=== PATIENT | female | born 1975 | race Caucasian/White ===

== ENCOUNTER 2018-07-10 21:55 | Emergency (ER) | payer MEDICAID ==
[~2018-07-10] VITALS: Ht 160 cm; Wt 74.7 kg
[2018-07-10 21:58] VITALS: BP 88/66
--- NOTE | 2018-07-10 22:14 | NUR ---
Patient/Caregiver given discharge instructions and they have confirmed that they understand the instructions. Patient ambulatory with steady gait. PER PA
== END 2018-07-10 22:18 | disposition home or self-care (01) ==
LOC: ED 22:00
DX: F10.129 Alcohol abuse with intoxication, unspecified (principal); F15.129 Other stimulant abuse with intoxication, unspecified
CPT/HCPCS: 99281

== ENCOUNTER 2019-03-25 17:58 | Emergency (ER) | payer MEDICAID ==
[~2019-03-25] VITALS: Ht 160 cm; Wt 64.0 kg
[2019-03-25 18:02] VITALS: BP 133/81
--- NOTE | 2019-03-25 18:12 | NUR ---
PT TO ROOM FROM TRIAGE, HYSTERICALLY STATING "THEY'RE COMING OUT, THE SNAKES KEEP COMING, THEY SMELL LIKE POISON" SHE RUBS HER SCALP; UPON CHANGING INTO GOWN & GATHERING BELONGINGS, THE SW (MAYELIN) FOUND A KITCHEN KNIFE (CLEVER STYLE) WITH BELONGINGS, KNIFE LABELED & GIVEN TO SECURITY; 2 BAGS OF PERSONAL BELONGINGS PLACED IN LOCKER (TENNIS SHOES, CLOTHES, JACKET, LG PHONE & PURSE), SECURITY VIDAL DOWN, AWAITING SITTER- POWER SUPPLY ENGINEER AWARE.
[2019-03-25] MEDS ORDERED: DEPAKOTE (18:25)
[2019-03-25] MEDS ORDERED: ZOLOFT (18:25)
[2019-03-25] MEDS ORDERED: ZIPRASIDONE 20 MG INJ IM ONE ×2 (18:30→18:32)
[2019-03-25] MEDS ORDERED: LORazepam 1MG TABLET PO ONE (18:30)
[2019-03-25] MEDS ORDERED: LORazepam 1MG TABLET ONE (18:32)
--- NOTE | 2019-03-25 18:40 | NUR ---
PT STATES SHE IS UNABLE TO VOID AT THIS TIME DESPITE FREQUENT ENCOURAGEMENT.
--- NOTE | 2019-03-25 18:53 | NUR ---
SMOOTH ARRIVED & IN VIEW OF PT.
[2019-03-25 19:07] LABS: BASOPHILS # (AUTO) 0.05 x10^3/uL (0-0.1); BASOPHILS % (AUTO) 1 % (0-1); EOSINOPHILS # (AUTO) 0.03 x10^3/uL (0-0.4); EOSINOPHILS % (AUTO) 0 % (1-7); LYMPHOCYTES # (AUTO) 2.12 x10^3/uL (1-3.4); LYMPHOCYTES % (AUTO) 21 % (22-44); MD NO; MEAN CORPUSCULAR HEMOGLOBIN 29.9 pg (27.0-34.8); MEAN CORPUSCULAR HGB CONC 33.3 g/dL (32.4-35.8); MEAN CORPUSCULAR VOLUME 89.8 fL (80-100); MEAN PLATELET VOLUME 8.1 fL (7.4-10.4); MONOCYTES # (AUTO) 0.94 x10^3/uL (0.2-0.8); MONOCYTES % (AUTO) 9 % (2-9); NEUTROPHILS # (AUTO) 7.21 x10^3/uL (1.8-6.8); NEUTROPHILS % (AUTO) 70 % (42-75); PLATELET COUNT 389 x10^3/uL (130-400); RED BLOOD COUNT 4.65 x10^6/uL (3.82-5.3); RED CELL DISTRIBUTION WIDTH 15.6 % (9.6-15.2)
[2019-03-25 19:11] LABS: SALICYLATE LEVEL 6.6 mg/dL (2.8-20.0)
--- NOTE | 2019-03-25 19:12 | NUR ---
report from darlene ann. pt calm on gurney. sitter at bedside. pt to bathroom to provide urine sample.
--- NOTE | 2019-03-25 19:55 | NUR ---
pt unable to give urine sample. er md seth informed. Dr. Seth states no need for urine sample. pt to be discharged once more awake.
[2019-03-25 21:26] LABS: ALANINE AMINOTRANSFERASE 35 U/L (12-78); ALBUMIN 3.7 g/dL (3.4-5.0); ANION GAP 15 mmol/L (5-15); CALCIUM 9.5 mg/dL (8.5-10.1); CHLORIDE 105 mmol/L (98-107); CREATININE 0.93 mg/dL (0.55-1.02)
[2019-03-25 21:28] LABS: ALKALINE PHOSPHATASE 81 U/L (45-117); BILIRUBIN,TOTAL 0.4 mg/dL (0.2-1.0); TOTAL PROTEIN 7.7 g/dL (6.4-8.2)
== END 2019-03-25 22:25 | disposition home or self-care (01) ==
LOC: ED 18:23
DX: F15.10 Other stimulant abuse, uncomplicated (principal); F22 Delusional disorders; F17.200 Nicotine dependence, unspecified, uncomplicated; R44.3 Hallucinations, unspecified; F10.129 Alcohol abuse with intoxication, unspecified
CPT/HCPCS: 36415; 80053; 80307; 84703; 85025; 96372; 99283; J3486

== ENCOUNTER 2019-03-27 15:03 | Inpatient (IN) | payer MEDICAID ==
[~2019-03-27] VITALS: Ht 160 cm; Wt 66.8 kg
[~2019-03-27 15:03] MED LIST: DEPAKOTE; ZOLOFT
[2019-03-27] MEDS ORDERED: POLYETHYLENE GLYCOL 17 GM PACKET PO PRN (15:30)
[2019-03-27] MEDS ORDERED: DOCUSATE 100 MG CAPSULE PO PRN (15:30)
[2019-03-27] MEDS ORDERED: BISACODYL 10 MG SUPP PR PRN (15:30)
[2019-03-27] MEDS ORDERED: ONDANSETRON ODT 4 MG PO PRN (15:30)
[2019-03-27] MEDS ORDERED: CLON0.5T11 PO (15:40)
[2019-03-27] MEDS ORDERED: QUET300T PO (15:40)
[2019-03-27] MEDS ORDERED: DIVA250T14 PO (15:40)
[2019-03-27] MEDS ORDERED: SERT-238 PO (15:40)
[2019-03-27] MEDS ORDERED: HYDR25CA94 PO (15:40)
[2019-03-27] MEDS: PLEASE ENTER HEIGHT AND WEIGHT MC SCH (17:30)
[2019-03-27 17:42] VITALS: BP 100/68
[2019-03-27 18:11] LABS: MICROSCOPIC INDICATED
[2019-03-27 18:30] LABS: CULTURE INDICATED? YES
[2019-03-27 19:30] VITALS: BP 99/63
[2019-03-27] MEDS: DIVALPROEX 500 MG TABLET.DR PO SCH (20:11)
[2019-03-27] MEDS: ACAMPROSATE 333 MG TABLET.DR PO SCH (20:11)
[2019-03-28] MEDS: PLEASE ENTER HEIGHT AND WEIGHT MC SCH (02:35)
[2019-03-28 07:09] VITALS: BP 94/59
[2019-03-28 08:23] LABS: ANION GAP 7 mmol/L (5-15); CALCIUM 9.2 mg/dL (8.5-10.1); CHLORIDE 104 mmol/L (98-107); CHOLESTEROL, TOTAL 202 mg/dL (140-239); CREATININE 0.71 mg/dL (0.55-1.02)
[2019-03-28 08:50] LABS: CHOL/HDL RATIO 2.7; FREE T4 (FREE THYROXINE) 0.99 ng/dL (0.76-1.46); HDL CHOL % 37 % (28-40); HDL CHOLESTEROL (DIRECT) 74 mg/dL (40-60); LDL CHOLESTEROL,CALCULATED 101 mg/dL (54-169); LDL/HDL RATIO 1.4 (0.5-3.0); TRIGLYCERIDES 134 mg/dL (50-200); VLDL CHOLESTEROL 27 mg/dL (0-25)
[2019-03-28] MEDS ORDERED: QUETIAPINE 100MG TABLET PO SCH (09:00)
[2019-03-28] MEDS: DIVALPROEX 500 MG TABLET.DR PO SCH ×2 (09:05→20:19)
[2019-03-28] MEDS: ACAMPROSATE 333 MG TABLET.DR PO SCH ×3 (09:05→20:19)
[2019-03-28] MEDS: NICOTINE 7 MG/24 HR PATCH.TD24 TD SCH (09:05)
[2019-03-28] MEDS: SERTRALINE 100MG TABLET PO SCH (09:06)
[2019-03-28 19:52] VITALS: BP 94/61
[2019-03-28] MEDS: QUETIAPINE 200 MG TABLET PO SCH (20:19)
[2019-03-29 07:05] VITALS: BP 98/59
[2019-03-29] MEDS: SERTRALINE 100MG TABLET PO SCH (08:18)
[2019-03-29] MEDS: DIVALPROEX 500 MG TABLET.DR PO SCH ×2 (08:18→20:28)
[2019-03-29] MEDS: ACAMPROSATE 333 MG TABLET.DR PO SCH ×3 (08:19→20:27)
[2019-03-29] MEDS: NICOTINE 7 MG/24 HR PATCH.TD24 TD SCH (08:19)
[2019-03-29] MEDS: NAPROXEN 500 MG TABLET PO PRN (08:19)
[2019-03-29] MEDS: RISPERIDONE 0.5 MG TABLET PO SCH ×2 (09:00→20:27)
[2019-03-29 19:34] VITALS: BP 101/66
[2019-03-29] MEDS: QUETIAPINE 200 MG TABLET PO SCH (20:27)
[2019-03-30 07:35] VITALS: BP 102/66
[2019-03-30] MEDS: ACAMPROSATE 333 MG TABLET.DR PO SCH ×3 (08:16→20:28)
[2019-03-30] MEDS: RISPERIDONE 0.5 MG TABLET PO SCH (08:17)
[2019-03-30] MEDS: DIVALPROEX 500 MG TABLET.DR PO SCH ×2 (08:17→20:32)
[2019-03-30] MEDS: SERTRALINE 100MG TABLET PO SCH (08:17)
[2019-03-30] MEDS: NICOTINE 7 MG/24 HR PATCH.TD24 TD SCH (08:18)
[2019-03-30] MEDS: NAPROXEN 500 MG TABLET PO PRN ×2 (08:22→20:29)
[2019-03-30] MEDS ORDERED: LORazepam 1MG TABLET PO ONE (09:30)
[2019-03-30] MEDS: ACETAMINOPHEN 325 MG TABLET PO PRN (17:58)
[2019-03-30 18:07] VITALS: BP 94/61
[2019-03-30 19:39] VITALS: BP 97/60
[2019-03-30] MEDS: QUETIAPINE 200 MG TABLET PO SCH (20:29)
[2019-03-30] MEDS: RISPERIDONE 1 MG TABLET PO SCH (20:29)
[2019-03-31 07:36] VITALS: BP 105/66
[2019-03-31] MEDS: RISPERIDONE 1 MG TABLET PO SCH ×2 (08:30→20:41)
[2019-03-31] MEDS: DIVALPROEX 500 MG TABLET.DR PO SCH ×2 (08:30→20:40)
[2019-03-31] MEDS: SERTRALINE 100MG TABLET PO SCH (08:31)
[2019-03-31] MEDS: ACAMPROSATE 333 MG TABLET.DR PO SCH ×3 (08:31→20:39)
[2019-03-31] MEDS: NICOTINE 7 MG/24 HR PATCH.TD24 TD SCH (08:32)
[2019-03-31] MEDS: NAPROXEN 500 MG TABLET PO PRN (08:45)
[2019-03-31] MEDS: hydrOXyzine 50MG TABLET PO PRN (14:09)
[2019-03-31] MEDS: ACETAMINOPHEN 325 MG TABLET PO PRN ×2 (16:24→20:40)
[2019-03-31 20:38] VITALS: BP 99/66
[2019-03-31] MEDS: QUETIAPINE 200 MG TABLET PO SCH (20:41)
[2019-04-01] MEDS: NAPROXEN 500 MG TABLET PO PRN ×2 (04:01→20:26)
[2019-04-01 07:24] VITALS: BP 102/64
[2019-04-01] MEDS: DIVALPROEX 500 MG TABLET.DR PO SCH ×2 (09:00→20:25)
[2019-04-01] MEDS: ACAMPROSATE 333 MG TABLET.DR PO SCH ×3 (09:24→20:26)
[2019-04-01] MEDS: SERTRALINE 100MG TABLET PO SCH (09:26)
[2019-04-01] MEDS: NICOTINE 7 MG/24 HR PATCH.TD24 TD SCH (09:26)
[2019-04-01] MEDS: RISPERIDONE 1 MG TABLET PO SCH ×2 (09:26→20:26)
[2019-04-01] MEDS: ACETAMINOPHEN 325 MG TABLET PO PRN ×2 (09:30→17:36)
[2019-04-01] MEDS: hydrOXyzine 50MG TABLET PO PRN (13:16)
[2019-04-01 19:45] VITALS: BP 101/68
[2019-04-01] MEDS: QUETIAPINE 200 MG TABLET PO SCH (20:26)
[2019-04-02 07:18] VITALS: BP 105/76
[2019-04-02] MEDS: NAPROXEN 500 MG TABLET PO PRN (07:48)
[2019-04-02] MEDS: ACAMPROSATE 333 MG TABLET.DR PO SCH ×3 (07:48→19:59)
[2019-04-02] MEDS: SERTRALINE 100MG TABLET PO SCH (07:50)
[2019-04-02] MEDS: NICOTINE 7 MG/24 HR PATCH.TD24 TD SCH (07:50)
[2019-04-02] MEDS: RISPERIDONE 1 MG TABLET PO SCH ×2 (07:50→19:59)
[2019-04-02] MEDS: DIVALPROEX 500 MG TABLET.DR PO SCH ×2 (07:50→20:00)
[2019-04-02] MEDS: hydrOXyzine 50MG TABLET PO PRN (14:27)
[2019-04-02] MEDS: ACETAMINOPHEN 325 MG TABLET PO PRN (14:27)
[2019-04-02 19:34] VITALS: BP 101/67
[2019-04-02] MEDS: QUETIAPINE 200 MG TABLET PO SCH (19:59)
[2019-04-03 07:21] VITALS: BP 106/71
[2019-04-03] MEDS: NICOTINE 7 MG/24 HR PATCH.TD24 TD SCH (08:40)
[2019-04-03] MEDS: NAPROXEN 500 MG TABLET PO PRN (08:40)
[2019-04-03] MEDS: DIVALPROEX 500 MG TABLET.DR PO SCH ×2 (08:41→19:53)
[2019-04-03] MEDS: SERTRALINE 100MG TABLET PO SCH (08:41)
[2019-04-03] MEDS: RISPERIDONE 1 MG TABLET PO SCH ×2 (08:41→19:52)
[2019-04-03] MEDS: ACAMPROSATE 333 MG TABLET.DR PO SCH ×3 (08:41→19:52)
[2019-04-03] MEDS: hydrOXyzine 50MG TABLET PO PRN ×2 (08:41→16:20)
[2019-04-03] MEDS: BUTALB/APAP/CAFFEINE 50MG/325MG/40MG PO PRN ×2 (13:18→20:00)
[2019-04-03 19:28] VITALS: BP 105/70
[2019-04-03] MEDS: QUETIAPINE 200 MG TABLET PO SCH (19:51)
[2019-04-04 07:14] VITALS: BP 108/69
[2019-04-04] MEDS: BUTALB/APAP/CAFFEINE 50MG/325MG/40MG PO PRN (07:32)
[2019-04-04] MEDS: SERTRALINE 100MG TABLET PO SCH (08:26)
[2019-04-04] MEDS: NICOTINE 7 MG/24 HR PATCH.TD24 TD SCH (08:26)
[2019-04-04] MEDS: RISPERIDONE 1 MG TABLET PO SCH (08:27)
[2019-04-04] MEDS: DIVALPROEX 500 MG TABLET.DR PO SCH (08:27)
[2019-04-04] MEDS: ACAMPROSATE 333 MG TABLET.DR PO SCH (08:28)
[2019-04-04] MEDS ORDERED: QUET100T PO (12:18)
[2019-04-04] MEDS ORDERED: RISP1TAB45 PO (12:18)
[2019-04-04] MEDS ORDERED: DIVA-61 PO (12:18)
[2019-04-04] MEDS ORDERED: SERT100T32 PO (12:18)
[2019-04-04] MEDS ORDERED: NICO-485 TD (12:18)
[2019-04-04] MEDS ORDERED: QUET200T PO (12:18)
[2019-04-04] MEDS ORDERED: ACAM333T7 PO (12:18)
[2019-04-04] MEDS ORDERED: HYDR50TA13 PO (12:18)
== END 2019-04-04 09:55 | disposition home or self-care (01) | DRG 750 ==
LOC: 3E 17:20
PROVIDERS: ADMIT Psychiatry & Neurology Psychosomatic Medicine; ATTEND Psychiatry & Neurology Psychosomatic Medicine
DX: F25.0 Schizoaffective disorder, bipolar type (principal); F15.20 Other stimulant dependence, uncomplicated; F12.10 Cannabis abuse, uncomplicated; F17.210 Nicotine dependence, cigarettes, uncomplicated; F23 Brief psychotic disorder; F41.9 Anxiety disorder, unspecified; Z80.1 Family history of malignant neoplasm of trachea, bronchus and lung; Z82.49 Family history of ischemic heart disease and other diseases of the circulatory system; Z82.5 Family history of asthma and other chronic lower respiratory diseases; Z83.3 Family history of diabetes mellitus
CPT/HCPCS: 36415; 71045; 80048; 80061; 81001; 82607; 84439; 84443; 87086

== ENCOUNTER 2019-05-07 18:42 | Emergency (ER) | payer MEDICAID ==
[~2019-05-07] VITALS: Ht 160 cm; Wt 74.5 kg
[~2019-05-07 18:42] MED LIST changes: +ACAM333T7 PO; +CLON0.5T11 PO; +DIVA-61 PO; +DIVA250T14 PO; +HYDR25CA94 PO; +HYDR50TA13 PO; +NICO-485 TD; +QUET100T PO; +QUET200T PO; +QUET300T PO; +RISP1TAB45 PO; +SERT-238 PO; +SERT100T32 PO
--- NOTE | 2019-05-07 19:58 | NUR ---
Patient called in lobby; no patient answered. Patient again called in lobby, RN walked around to pediatric section, still no answer.
[2019-05-07 20:09] VITALS: BP 105/61
--- NOTE | 2019-05-07 20:32 | NUR ---
PT BELONGINGS BAGGED & LABELED; WILL BE PLACED IN ED LOCKER.
--- NOTE | 2019-05-07 20:37 | NUR ---
THREE BELONGINGS BAGS WERE LABELED AND PLACED IN THE STORAGE LOCKER.
[2019-05-07 20:52] LABS: BASOPHILS # (AUTO) 0.08 x10^3/uL (0-0.1); BASOPHILS % (AUTO) 1 % (0-1); EOSINOPHILS # (AUTO) 0.12 x10^3/uL (0-0.4); EOSINOPHILS % (AUTO) 2 % (1-7); LYMPHOCYTES # (AUTO) 2.77 x10^3/uL (1-3.4); LYMPHOCYTES % (AUTO) 38 % (22-44); MD NO; MEAN CORPUSCULAR HEMOGLOBIN 29.3 pg (27.0-34.8); MEAN CORPUSCULAR HGB CONC 33.4 g/dL (32.4-35.8); MEAN CORPUSCULAR VOLUME 87.9 fL (80-100); MEAN PLATELET VOLUME 7.3 fL (7.4-10.4); MONOCYTES # (AUTO) 0.64 x10^3/uL (0.2-0.8); MONOCYTES % (AUTO) 9 % (2-9); NEUTROPHILS % (AUTO) 50 % (42-75); PLATELET COUNT 290 x10^3/uL (130-400); RED BLOOD COUNT 4.17 x10^6/uL (3.82-5.3)
[2019-05-07 21:04] LABS: ALBUMIN 3.5 g/dL (3.4-5.0); ANION GAP 5 mmol/L (5-15); CALCIUM 8.6 mg/dL (8.5-10.1); CHLORIDE 111 mmol/L (98-107); CREATININE 0.86 mg/dL (0.55-1.02); SALICYLATE LEVEL 5.2 mg/dL (2.8-20.0)
[2019-05-07 21:08] LABS: AMPHETAMINE SCREEN, URINE Negative (Negative); BARBITURATE SCREEN, URINE Negative (Negative); BENZODIAZEPINE SCREEN, URINE Negative (Negative); CANNABINOID SCREEN, URINE Positive (Negative); COCAINE SCREEN, URINE Negative (Negative); METHADONE SCREEN, URINE Negative (Negative); OPIATE SCREEN, URINE Negative (Negative)
--- NOTE | 2019-05-07 21:22 | NUR ---
called psych city collector to try and request consult
[2019-05-07] MEDS ORDERED: OLANZAPINE 5 MG TABLET PO ONE (21:30)
[2019-05-07] MEDS ORDERED: VALPROIC ACID 250 MG CAPSULE PO ONE (21:30)
[2019-05-07] MEDS ORDERED: DIVA500T2 PO (21:41)
[2019-05-07] MEDS ORDERED: QUET300T5 PO (21:41)
[2019-05-07] MEDS ORDERED: ZYPREXA (21:41)
--- NOTE | 2019-05-07 21:43 | NUR ---
PT LYING QUIETLY ON GURFRANCISCA. WHEN QUESTIONED ABOUT SI, PT REPLIED "I'M JUST TIRED OF EVERYTHING. I'M TIRED OF PEOPLE STEALING FROM ME" "LIFE IS HARD". PT UNWILLING TO EXPOUND ON COMMENT.
--- NOTE | 2019-05-07 21:45 | NUR ---
PSYCH TELE MONITOR TO ROOM.
[2019-05-07] MEDS ORDERED: OLANZAPINE 5 MG TABLET ONE (22:01)
--- NOTE | 2019-05-07 22:46 | NUR ---
PT DOZING W/ BLANKET OVER HER HEAD, CHEST RISE & FALL NOTED. SIDE RAILS UP X2. SITTER OUTSIDE ROOM.
--- NOTE | 2019-05-07 22:47 | NUR ---
STILL WAITING FOR PSYCH CONSULT
--- NOTE | 2019-05-07 22:52 | NUR ---
PT REPORT TO BUSHRA Boles RN. PT CARE TRANSFERRED.
--- NOTE | 2019-05-07 23:44 | NUR ---
PT D/C WITH D/C SUMMARY AND RESOURCES FOR F/U FOR MENTAL HEALTH SERVICES. 3 PT BELONGING BAGS RETURNED TO PT FROM LOCKED STORAGE. PT DENIES ANY OTHER NEEDS PERTAINING TO THIS VISIT AND AMBULATES TO REGISTRATION DESK WITH STEADY GAIT FOR D/C HOME. PT USING REGISTRATION PHONE TO CALL [facility] FOR D/C TO [facility] IN [place]. PT QUESTIONS ANSWERED.
== END 2019-05-07 23:47 | disposition home or self-care (01) ==
LOC: ED 23:30
DX: F33.9 Major depressive disorder, recurrent, unspecified (principal); R45.851 Suicidal ideations; M79.10 Myalgia, unspecified site; F17.200 Nicotine dependence, unspecified, uncomplicated
CPT/HCPCS: 36415; 80048; 80307; 82040; 84703; 85025; 99284

== ENCOUNTER 2019-06-14 14:31 | Emergency (ER) | payer MEDICAID ==
[~2019-06-14] VITALS: Ht 160 cm; Wt 68.0 kg
[~2019-06-14 14:31] MED LIST changes: +CLON-364 PO; -CLON0.5T11 PO; +DIVA500T2 PO; -HYDR50TA13 PO; +HYDR50TA99 PO; +QUET300T5 PO; +ZYPREXA
[2019-06-14 14:43] VITALS: BP 97/74
--- NOTE | 2019-06-14 15:14 | NUR ---
FIRST CONTACT WITH PT. PT DOING METH AND ETOH. WANTS TO GET A JOB SO SHE NEED TO GET OFF METH AND ETOH DETOX LAST DRINK AND METH YESTERDAY. PT'S AOX4. RESPS EVEN AND UNLABORED. BP/SPO2 MONITORS IN PLACE. CALL LIGHT WITHIN REACH.
[2019-06-14] MEDS ORDERED: CHLORDIAZEPOXIDE 25 MG CAPSULE ONE (15:24)
--- NOTE | 2019-06-14 15:26 | NUR ---
pt medicated per emar. pt tolerated well. pt's aox4. resps even and unlabored.
[2019-06-14] MEDS ORDERED: CHLORDIAZEPOXIDE 25 MG CAPSULE PO ONE (15:30)
--- NOTE | 2019-06-14 15:48 | NUR ---
Patient given discharge instructions and they have confirmed that they understand the instructions. Patient ambulatory with steady gait.
== END 2019-06-14 15:49 | disposition home or self-care (01) ==
LOC: ED 15:40
DX: F10.10 Alcohol abuse, uncomplicated (principal); F15.10 Other stimulant abuse, uncomplicated; F17.200 Nicotine dependence, unspecified, uncomplicated; F41.9 Anxiety disorder, unspecified; R11.0 Nausea; Y90.0 Blood alcohol level of less than 20 mg/100 ml
CPT/HCPCS: 99283

== ENCOUNTER 2019-08-10 23:22 | Emergency (ER) | payer MEDICAID ==
[~2019-08-10] VITALS: Ht 160 cm; Wt 66.0 kg
--- NOTE | 2019-08-10 23:45 | NUR ---
PROVIDED PT WITH GOWN, PT STATED " THAT IS NOT NECESSARY, I DON'T NEED THAT", MONITORS APPLIED, SIDERAIL SOARES X2, CALL LIGHT WITHIN REACH. PROVIDED PT WITH URINE CUP, PT STATED " I DO NOT NEED TO GO RIGHT NOW"
[2019-08-11 00:12] LABS: ALANINE AMINOTRANSFERASE 28 U/L (12-78); ALBUMIN 4.1 g/dL (3.4-5.0); ANION GAP 9 mmol/L (5-15); CALCIUM 9.3 mg/dL (8.5-10.1); CHLORIDE 105 mmol/L (98-107); CREATININE 0.72 mg/dL (0.55-1.02)
[2019-08-11 00:15] LABS: ALKALINE PHOSPHATASE 75 U/L (45-117); BILIRUBIN,TOTAL 0.2 mg/dL (0.2-1.0); TOTAL PROTEIN 7.8 g/dL (6.4-8.2)
--- NOTE | 2019-08-11 00:30 | NUR ---
PT REFUSING TO SIGN REGISTRATION PAPER WORK UNTIL AFTER SHE HAS READ IT ALL, PT ALSO REFUSING TO READ PAPERWORK AT THIS TIME.
[2019-08-11 00:34] LABS: MEAN CORPUSCULAR HEMOGLOBIN 28.8 pg (27.0-34.8); MEAN CORPUSCULAR HGB CONC 32.9 g/dL (32.4-35.8); MEAN CORPUSCULAR VOLUME 87.6 fL (80-100); MEAN PLATELET VOLUME 7.9 fL (7.4-10.4); PLATELET COUNT 253 x10^3/uL (130-400); RED BLOOD COUNT 5.09 x10^6/uL (3.82-5.3)
[2019-08-11 00:38] LABS: BASOPHILS # (AUTO) 0.07 x10^3/uL (0-0.1); BASOPHILS % (AUTO) 1 % (0-1); EOSINOPHILS # (AUTO) 0.14 x10^3/uL (0-0.4); EOSINOPHILS % (AUTO) 1 % (1-7); LYMPHOCYTES # (AUTO) 3.28 x10^3/uL (1-3.4); LYMPHOCYTES % (AUTO) 26 % (22-44); MD SCAN; MONOCYTES # (AUTO) 0.39 x10^3/uL (0.2-0.8); MONOCYTES % (AUTO) 3 % (2-9); NEUTROPHILS # (AUTO) 8.61 x10^3/uL (1.8-6.8); NEUTROPHILS % (AUTO) 69 % (42-75)
--- NOTE | 2019-08-11 01:35 | NUR ---
URINE SAMPLE TAKEN TO LAB
[2019-08-11 01:41] LABS: HCG UR SG 1.013 (1.003-1.030); MICROSCOPIC NOT IND
[2019-08-11 01:44] LABS: CULTURE INDICATED? NO
[2019-08-11 01:51] VITALS: BP 145/98
== END 2019-08-11 02:05 | disposition home or self-care (01) ==
LOC: ED 23:37
DX: R53.1 Weakness (principal); R26.2 Difficulty in walking, not elsewhere classified; R06.02 Shortness of breath; Z72.9 Problem related to lifestyle, unspecified; F17.200 Nicotine dependence, unspecified, uncomplicated
CPT/HCPCS: 36415; 80053; 81003; 81025; 85025; 93005; 99284